=== PATIENT | female | born 1985 | race American Indian/Alaskan Native ===

== ENCOUNTER 2016-05-30 11:42 | Emergency (ER) | payer MEDICARE ==
[2016-05-30 11:56] VITALS: BP 142/103
[2016-05-30 13:18] LABS: Basophils % (Auto) 0.7 % (0.0-1.8); Eosinophils % (Auto) 0.3 % (0.0-4.3); Hematocrit 39.9 % (30.3-42.9); Mean Corpuscular HGB Conc 33 % (30-34); Mean Corpuscular Hemoglobin 27 pg (28-32); Mean Corpuscular Volume 82 fl (79-97); Platelet Count 351 K/mm3 (140-440); Red Blood Count 4.89 M/mm3 (3.65-5.03); Red Cell Distribution Width 14.3 % (13.2-15.2)
[2016-05-30 13:36] LABS: Anion Gap 20 mmol/L; Blood Urea Nitrogen 10 mg/dL (7-17); Calcium 9.1 mg/dL (8.4-10.2); Carbon Dioxide 20 mmol/L (22-30); Chloride 98.7 mmol/L (98-107); Glucose 88 mg/dL (65-100); Sodium 135 mmol/L (137-145)
[2016-05-30 14:21] LABS: Urine Drugs of Abuse Note Disclamer
[2016-05-30 14:43] LABS: Bilirubin,Urine NEG (Negative); Blood,Urine NEG (Negative); Granular Casts,Urine 2 /LPF; Ketones,Urine NEG (Negative); Leukocyte Esterase,Urine MOD (Negative); Mucus,Urine FEW /HPF; Nitrite,Urine NEG (Negative); Urobilinogen,Urine < 2.0 mg/dL (<2.0)
--- NOTE | 2016-05-31 15:36 | ED Elopement Review ---
ED Pt Elopement review - Results review Lab results: Laboratory Tests 05/30/16 05/30/16 05/30/16 12:56 12:56 14:20 WBC 11.0 RBC 4.89 Hgb 13.0 Hct 39.9 MCV 82 MCH 27 L MCHC 33 RDW 14.3 Plt Count 351 Lymph % (Auto) 16.6 Placer % (Auto) 5.1 Eos % (Auto) 0.3 Baso % (Auto) 0.7 Lymph # 1.8 Placer # 0.6 Eos # 0.0 Baso # 0.1 Seg Neutrophils % 77.3 H Seg Neutrophils # 8.5 H Sodium 135 L Potassium 4.0 Chloride 98.7 Carbon Dioxide 20 L Anion Gap 20 BUN 10 Creatinine 0.4 L Estimated GFR > 60 BUN/Creatinine Ratio 25.00 Glucose 88 Calcium 9.1 Urine Color Yellow Urine Turbidity Cloudy Urine pH 5.0 Ur Specific [place] 1.021 Urine Protein 30 mg/dl Urine Glucose (UA) Neg Urine Ketones Neg Urine Blood Neg Urine Nitrite Neg Ur Reducing Substances Not Reportable Urine Bilirubin Neg Urine Ictotest Not Reportable Urine Urobilinogen < 2.0 Ur Leukocyte Esterase Mod Urine WBC (Auto) 14.0 H Urine RBC (Auto) 2.0 U Epithel Cells (Auto) 11.0 Granular Casts 2 Urine Mucus Few Urine HCG, Qual Negative Urine Opiates Screen Urine Methadone Screen Ur Barbiturates Screen Ur Phencyclidine Scrn Ur Amphetamines Screen U Benzodiazepines Scrn Urine Cocaine Screen U Marijuana (THC) Screen Drugs of Abuse Note 05/30/16 14:20 WBC RBC Hgb Hct MCV MCH MCHC RDW Plt Count Lymph % (Auto) Placer % (Auto) Eos % (Auto) Baso % (Auto) Lymph # Placer # Eos # Baso # Seg Neutrophils % Seg Neutrophils # Sodium Potassium Chloride Carbon Dioxide Anion Gap BUN Creatinine Estimated GFR BUN/Creatinine Ratio Glucose Calcium Urine Color Urine Turbidity Urine pH Ur Specific [place] Urine Protein Urine Glucose (UA) Urine Ketones Urine Blood Urine Nitrite Ur Reducing Substances Urine Bilirubin Urine Ictotest Urine Urobilinogen Ur Leukocyte Esterase Urine WBC (Auto) Urine RBC (Auto) U Epithel Cells (Auto) Granular Casts Urine Mucus Urine HCG, Qual Urine Opiates Screen Presumptive negative Urine Methadone Screen Presumptive negative Ur Barbiturates Screen Presumptive negative Ur Phencyclidine Scrn Presumptive negative Ur Amphetamines Screen Presumptive negative U Benzodiazepines Scrn Presumptive negative Urine Cocaine Screen Presumptive negative U Marijuana (THC) Screen Presumptive negative Drugs of Abuse Note Disclamer - Call Back decision Pt Call Back Decision: No action required
== END 2016-05-30 14:21 | disposition left against medical advice (07) ==
LOC: ED 11:42
DX: R44.0 Auditory hallucinations (principal); F20.9 Schizophrenia, unspecified; Z53.21 Procedure and treatment not carried out due to patient leaving prior to being seen by health care provider
CPT/HCPCS: 36415; 80048; 80307; 81001; 81025; 85025

== ENCOUNTER 2021-09-05 17:06 | Emergency (ER) | payer MEDICARE ==
[2021-09-05] MEDS ORDERED: TETANUS,DIPH,PERTUSS(ACELL) VACCINE 0.5 ML SYRINGE IM ONE (20:35)
--- NOTE | 2021-09-05 20:41 | Emergency Department Report ---
HPI - General Chief Complaint: Laceration/Recheck/Suture Time Seen by Provider: 09/05/21 20:33 - [facility] HPI: Room 3 The patient is a 36-year-old female present with a chief complaint of right foot laceration. Patient states this afternoon just prior to arrival she dropped a glass punch bowl and it broke lacerating the top of her right foot. Patient states she is not certain the last time she had a tetanus shot ED Past Medical Hx - Past Medical History Previous Medical History?: Yes Hx Diabetes: Yes (borderline) Hx Psychiatric Treatment: Yes (schizophrenia) - Surgical History Past Surgical History?: No - Family History Family history: no significant - Social History Smoking Status: Never Smoker Substance Use Type: None (Denies illicit drug use) - Medications Home Medications: Home Medications Medication Instructions Recorded Confirmed Last Taken Type Benztropine [Cogentin] 3 mg PO DAILY 05/30/16 05/30/16 Unknown History risperiDONE [RisperDAL] 3 mg PO DAILY 05/30/16 05/30/16 Unknown History traMADoL [Ultram] 50 mg PO Q6HR PRN #10 tablet 09/05/21 Unknown Rx ED Review of Systems ROS: Stated complaint: CUT FOOT Other details as noted in HPI Constitutional: no symptoms reported Eyes: denies: eye pain ENT: denies: throat pain Respiratory: no symptoms reported Cardiovascular: denies: chest pain Endocrine: no symptoms reported Gastrointestinal: denies: abdominal pain Genitourinary: denies: dysuria Musculoskeletal: denies: back pain Skin: other (Right foot laceration) Neurological: denies: headache Physical Exam - Physical Exam Vital Signs: Vital Signs 09/05/21 09/05/21 17:48 20:05 Temperature 98.6 F 98.2 F Pulse Rate 102 H 72 Respiratory 16 18 Rate Blood Pressure 162/81 139/79 [Left] O2 Sat by Pulse 95 98 Oximetry Physical Exam: GENERAL: The patient is well-developed well-nourished female lying on stretcher not appearing to be in acute distress. [] HEENT: Normocephalic. Atraumatic. Extraocular motions are intact. Patient has moist mucous membranes. NECK: Supple. Trachea midline CHEST/LUNGS: There is no respiratory distress noted.There is no gallop rub or murmur. SKIN: There is an approximately 3 cm laceration to the dorsum of the right foot with venous oozing. NEURO: The patient is awake, alert, and oriented. The patient is cooperative. The patient has no focal neurologic deficits. The patient has normal speech. GCS 15 MUSCULOSKELETAL: There is no evidence of acute injury. ED Course Vital Signs 09/05/21 09/05/21 17:48 20:05 Temperature 98.6 F 98.2 F Pulse Rate 102 H 72 Respiratory 16 18 Rate Blood Pressure 162/81 139/79 [Left] O2 Sat by Pulse 95 98 Oximetry - Laceration /Wound Repair Right Foot Wound Location: lower extremity Wound Length (cm): 3 Wound's Depth, Shape: linear Wound Explored: no foreign body removed Irrigated w/ Saline (ccs): 500 Betadine Prep?: Yes Anesthesia: Lidocaine w/ Epi Volume Anesthetic (ccs): 5 Wound Repaired With: sutures Suture Size/Type: 3:0, nylon Number of Sutures: 5 Layer Closure?: No Sterile Dressing Applied?: Yes ED Medical Decision Making - Radiology Data Radiology results: report reviewed (Right foot x-ray), image reviewed (Right foot x-ray) interpreted by me: Right foot x-ray-no acute fracture, no radiopaque foreign body seen [facility] [address] [place] [address] XRay Report Signed Patient: GREG RAHMAN MR#: [id number] 34 : 1985 Acct:[id number] Age/Sex: 36 / F ADM Date: 09/05/21 Loc: ED Attending Dr: Ordering Physician: TRACEE LOMAS MD Date of Service: 09/05/21 Procedure(s): XR foot 3+V RT Accession Number(s): [id number] cc: TRACEE LOMAS MD Fluoro Time In Minutes: . RIGHT FOOT 3 VIEW(S) INDICATION / CLINICAL INFORMATION: Glass bowl fell, broke lacerated top of foot COMPARISON: None available. FINDINGS: BONES / JOINT(S): No acute fracture or subluxation. No significant arthritis. SOFT TISSUES: No significant abnormality. ADDITIONAL FINDINGS: None. IMPRESSION: 1. No acute findings. Signer Name: Leroy Blake MD Signed: 09/05/2021 9:08 PM Workstation Name: [id number] Transcribed By: TL Dictated By: Leroy Blake MD Electronically Authenticated By: Leroy Blake MD Signed Date/Time: 09/05/212107 DD/ 07 - Differential Diagnosis Foot laceration, foreign body Critical care attestation.: If time is entered above; I have spent that time in minutes in the direct care of this critically ill patient, excluding procedure time. ED Disposition Clinical Impression: Laceration of right foot Disposition: HOME / SELF CARE / HOMELESS Is pt being admited?: No Does the pt Need Aspirin: No Condition: Stable Additional Instructions: Your sutures need to be removed in 7 days. You can return to the emergency department to have them removed or follow-up with your primary physician. Return to the emergency department should you develop worsening symptoms, inability to tolerate food or liquids, high fever or any other concerns Prescriptions: traMADoL [Ultram] 50 mg PO Q6HR PRN #10 tablet PRN Reason: Pain Referrals: ROBERTO WYMAN MD [Primary Care Provider] - 7-10 days Time of Disposition: 21:54
[2021-09-05] MEDS ORDERED: LIDOCAINE 2%/EPINEPHRINE 1:100,000 VIAL (20 ML) INFILTRATI ONE (20:43)
[2021-09-05] MEDS ORDERED: SODIUM CHLORIDE 0.9% IRR 500 ML BOTTLE IR ONE (20:43)
--- NOTE | 2021-09-05 21:13 | XRay Report ---
. RIGHT FOOT 3 VIEW(S) INDICATION / CLINICAL INFORMATION: Glass bowl fell, broke lacerated top of foot COMPARISON: None available. FINDINGS: BONES / JOINT(S): No acute fracture or subluxation. No significant arthritis. SOFT TISSUES: No significant abnormality. ADDITIONAL FINDINGS: None. IMPRESSION: 1. No acute findings. Signer Name: Leroy Blake MD Signed: 09/05/2021 9:08 PM Workstation Name: [id number]
[2021-09-05] MEDS ORDERED: BACITRACIN ZINC OINT 28.4 GM TP ONE (21:52)
[2021-09-05 22:25] VITALS: BP 125/66
== END 2021-09-05 22:25 | disposition home or self-care (01) ==
LOC: ED 17:06
DX: S91.311A Laceration without foreign body, right foot, initial encounter (principal); E11.9 Type 2 diabetes mellitus without complications; F20.9 Schizophrenia, unspecified; W04.XXXA Fall while being carried or supported by other persons, initial encounter; Y93.89 Activity, other specified; Y92.89 Other specified places as the place of occurrence of the external cause; Y99.8 Other external cause status
CPT/HCPCS: 12002; 73630; 90471; 90715; 99283; J3490